=== PATIENT | male | born 1955 | race Caucasian/White ===

== ENCOUNTER 2016-11-01 17:08 | Emergency (ER) | payer BC ==
[~2016-11-01] VITALS: Ht 188 cm; Wt 103.4 kg
== END 2016-11-01 19:10 | disposition home or self-care (01) ==
LOC: CED 17:08 → CFTX 17:08
DX: S61.411A Laceration without foreign body of right hand, initial encounter (principal); X58.XXXA Exposure to other specified factors, initial encounter; Y92.69 Other specified industrial and construction area as the place of occurrence of the external cause; Z23 Encounter for immunization
CPT/HCPCS: 12001; 90471; 90715; 99283